=== PATIENT | male | born 1990 | race Caucasian/White ===

== ENCOUNTER 2019-01-25 10:23 | Emergency (ER) | payer OTHER ==
[~2019-01-25] VITALS: Ht 185.4 cm; Wt 138.0 kg
[2019-01-25] MEDS ORDERED: ZOFR4TAB16 PO (10:42)
[2019-01-25] MEDS ORDERED: FIOR1CAP PO (10:43)
[2019-01-25] MEDS ORDERED: CLONI1TA PO ×2 (10:43→11:46)
[2019-01-25] MEDS ORDERED: KETOROLAC TROMETHAMINE 10 MG TAB PO ONE (11:00)
[2019-01-25] MEDS ORDERED: ONDANSETRON 4 MG ORAL DISINTEGRATING TAB (Q0162 PER 1MG) PO ONE (11:00)
[2019-01-25] MEDS ORDERED: cloNIDine 0.2 MG TAB PO ONE (11:00)
[2019-01-25] MEDS ORDERED: ONDA4TAB6 PO (11:46)
[2019-01-25] MEDS ORDERED: IMIT50TA PO (11:46)
[2019-01-25] MEDS ORDERED: BACT800T5 PO (11:46)
[2019-01-25] MEDS ORDERED: PROMETHAZINE 25 MG TAB PO ONE (12:15)
[2019-01-25 13:21] VITALS: BP 173/84
[2019-01-26] MEDS ORDERED: TYLETAB14 PO ×2 (03:16→05:46)
[2019-01-26] MEDS ORDERED: CYCL10TA PO (05:02)
[2019-01-26] MEDS ORDERED: CLON-412 PO (05:02)
[2019-01-26] MEDS ORDERED: BACT800T5 PO (05:02)
[2019-01-26] MEDS ORDERED: IMIT50TA PO (05:02)
[2019-01-26] MEDS ORDERED: ONDA4TAB6 PO (05:02)
[2019-01-26] MEDS ORDERED: IBUP-1022 PO (05:42)
== END 2019-01-25 13:29 | disposition home or self-care (01) ==
LOC: M ED 10:23
DX: L02.413 Cutaneous abscess of right upper limb (principal); G43.909 Migraine, unspecified, not intractable, without status migrainosus; I10 Essential (primary) hypertension; F17.218 Nicotine dependence, cigarettes, with other nicotine-induced disorders
CPT/HCPCS: 80047; 99283; Q0162

== ENCOUNTER 2019-01-26 03:07 | Emergency (ER) | payer OTHER, SELFPAY ==
[~2019-01-26] VITALS: Ht 185.4 cm; Wt 189.0 kg
[~2019-01-26 03:07] MED LIST: BACT800T5 PO; CLONI1TA PO; FIOR1CAP PO; IMIT50TA PO; ONDA4TAB6 PO; ZOFR4TAB16 PO
[2019-01-26] MEDS ORDERED: TYLETAB14 PO ×2 (03:16→05:46)
[2019-01-26 04:53] LABS: BASO % 0.2 % (0.0-1.0); EOS # 0.2 10^3/uL (0.0-0.5); EOS % 1.3 % (0.0-3.0); HEMATOCRIT 45.1 % (42.0-52.0); HEMOGLOBIN 15.1 g/dl (13.5-17.5); LYMPH # 3.9 10^3/uL (1.5-5.0); LYMPH % 26.5 % (24.0-44.0); MEAN CORPUSCULAR HEMOGLOBIN 30.6 pg (27.0-33.0); MEAN CORPUSCULAR HGB CONC 33.5 g/dl (32.0-36.5); MEAN CORPUSCULAR VOLUME 91.5 fl (80.0-96.0); MONO # 1.2 10^3/uL (0.0-0.8); NEUTROPHILS # 9.4 10^3/uL (1.5-8.5); NEUTROPHILS % 63.8 % (36.0-66.0); PLATELET COUNT, AUTOMATED 226 10^3/uL (150-450); RED BLOOD COUNT 4.93 10^6/uL (4.30-6.10); WHITE BLOOD COUNT 14.7 10^3/uL (4.0-10.0)
[2019-01-26] MEDS ORDERED: BACT800T5 PO (05:02)
[2019-01-26] MEDS ORDERED: ONDA4TAB6 PO (05:02)
[2019-01-26] MEDS ORDERED: CYCL10TA PO (05:02)
[2019-01-26] MEDS ORDERED: CLON-412 PO (05:02)
[2019-01-26] MEDS ORDERED: IMIT50TA PO (05:02)
[2019-01-26] MEDS ORDERED: IBUPROFEN 600 MG TAB PO ONE (05:15)
[2019-01-26] MEDS ORDERED: IBUP-1022 PO (05:42)
[2019-01-26 05:48] VITALS: BP 128/84
[2019-01-26] MEDS ORDERED: DALBAVANCIN 1,500 MG in D5W 500 ML IV ONE (06:00)
== END 2019-01-26 06:30 | disposition home or self-care (01) ==
LOC: M ED 03:07
DX: L02.413 Cutaneous abscess of right upper limb (principal); I10 Essential (primary) hypertension; E66.9 Obesity, unspecified; Z86.14 Personal history of Methicillin resistant Staphylococcus aureus infection; Z79.899 Other long term (current) drug therapy
CPT/HCPCS: 85025; 87040; 87070; 87077; 87186; 96365; 99283; J0875

== ENCOUNTER 2019-01-30 17:53 | Emergency (ER) | payer SELFPAY ==
[~2019-01-30] VITALS: Ht 185.4 cm; Wt 138.9 kg
[~2019-01-30 17:53] MED LIST changes: +CLON-412 PO; +CYCL10TA PO; +IBUP-1022 PO; +TYLETAB14 PO
[2019-01-30] MEDS ORDERED: BACTRIM 160MG/800MG DS TAB PO ONE ×2 (19:00)
[2019-01-30 19:17] VITALS: BP 179/106
== END 2019-01-30 19:30 | disposition home or self-care (01) ==
LOC: M ED 17:53
DX: L02.413 Cutaneous abscess of right upper limb (principal); I10 Essential (primary) hypertension